=== PATIENT | female | born 1995 | race Two or more races ===

== ENCOUNTER 2025-02-07 13:14 | Inpatient (IN) | payer OTHER ==
[~2025-02-07] VITALS: Ht 154.9 cm; Wt 68.0 kg
[2025-02-07] VITALS (8 sets, daily range): BP systolic 95–117; BP diastolic 52–82
[2025-02-07] MEDS ORDERED: RINGERS SOLUTION,LACTATED 1,000 ML IV SCH (14:00)
[2025-02-07] MEDS ORDERED: OXYTOCIN 500 ML IV ONE (14:00)
[2025-02-07 14:16] LABS: BASO % 0.3 % (0.1-1.2); EOS # 0.01 (0.04-0.54); EOS % 0.1 % (0.7-7.0); LYMPH # 1.08 (1.18-3.74); LYMPH % 11.0 % (19.3-53.1); MEAN PLATELET VOLUME 11.40 fl (9.4-12.4); MONO # 0.60 (0.24-0.82); MONO % 6.1 % (4.7-12.5); NEUT # 8.06 (1.56-6.13); NEUT % 82.0 % (34.0-71.1); RED CELL DISTRIBUTION WIDTH 13.5 % (11.6-14.4)
[2025-02-07 14:20] LABS: URINE APPEARANCE Clear; URINE BILIRRUBIN Negative (NEGATIVE); URINE BLOOD Negative; URINE COLOR Yellow; URINE GLUCOSE Negative (NEGATIVE); URINE LEUKOCYTE Negative; URINE NITRATE Negative; URINE PROTEIN Trace (NEGATIVE); URINE UROBILINOGEN 0.2 E.U./dl
[2025-02-07 14:21] LABS: URINE BACTERIA 970.6 uL (0.0-1933); URINE EPITHELIAL CELLS 43.2 uL (0.0-38.8); URINE RBC 31.3 uL (0.0-20.8); URINE WBC 10.4 uL (0.0-23.2)
[2025-02-07] MEDS ORDERED: PRENATA CHEWAB1 EACH PO (14:21)
[2025-02-07 14:36] LABS: INR 0.96
[2025-02-07 14:59] LABS: ALT/SGPT 15.0 U/L (12-78); AST/SGOT 19.0 U/L (15-37); BILIRUBIN TOTAL 0.33 mg/dL (0.3-1.2); BUN CREA RATIO 18.0 (7.0-25.0); CREATININE SERUM 0.39 mg/dL (0.55-1.02); GFR 192.97; GLOBULINA 3.2 G/DL (2.4-3.5); GLUCOSE FASTING 93.0 mg/dL (65-100); OSMOLALITY SERUM 277.0 MOSM/KG (275-295)
[2025-02-07 15:51] LABS: URINE KETONE 80 (NEGATIVE)
[2025-02-07 15:52] LABS: URINE CAST 0.00 uL (0.0-1.40)
[2025-02-07] MEDS ORDERED: CHLORHEXIDINE GLUCONATE 120 ML BOTTLE TOP ONE (20:37)
[2025-02-07] MEDS ORDERED: ERYTHROMYCIN BASE OPHT 1GM EACH TUBE OP ONE (20:37)
[2025-02-07] MEDS ORDERED: OXYTOCIN 20 UNITS/1000ML RL PIGGYBAG IV ONE (20:37)
[2025-02-07] MEDS ORDERED: LIDOCAINE HCL 1% 10ML VIAL ONE (20:38)
[2025-02-07] MEDS ORDERED: CHLORHEXIDINE GLUCONATE 120 ML BOTTLE TOP SCH (21:30)
[2025-02-07] MEDS ORDERED: ACETAMINOPHEN WITH CODEINE 1 UDTAB TABLET PO PRN (21:30)
[2025-02-07] MEDS ORDERED: OXYTOCIN 1,000 ML IV SCH (21:30)
[2025-02-08 02:15] VITALS: BP 112/65
[2025-02-08 09:13] VITALS: BP 101/67
[2025-02-08 19:56] VITALS: BP 104/69
[2025-02-09] VITALS: BP 90/61
[2025-02-09 08:23] VITALS: BP 90/61
== END 2025-02-09 14:11 | disposition home or self-care (01) | DRG 807 ==
LOC: LDR 13:14 → OB/GYN 13:14 → LDR 14:51 → OB/GYN 23:46
PROVIDERS: ADMIT Obstetrics & Gynecology; ATTEND Obstetrics & Gynecology
PROC: 10E0XZZ Delivery of Products of Conception, External Approach (ICD-10-PCS; principal; 2025-02-07)
PROC: 0UQG7ZZ Repair Vagina, Via Natural or Artificial Opening (ICD-10-PCS; 2025-02-07)
PROC: 4A1HXCZ Monitoring of Products of Conception, Cardiac Rate, External Approach (ICD-10-PCS; 2025-02-07)
DX: O71.4 Obstetric high vaginal laceration alone (principal); O69.81X0 Labor and delivery complicated by cord around neck, without compression, not applicable or unspecified; Z37.0 Single live birth; Z3A.38 38 weeks gestation of pregnancy